=== PATIENT | male | born 1955 | race Caucasian/White ===

== ENCOUNTER 2019-04-09 21:59 | Emergency (ER) | payer OTHER ==
[2019-04-10 00:46] LABS: ADD MAN DIFF? NO
[2019-04-10] MEDS: METOCLOPRAMIDE 10 MG INJ IV (00:46)
[2019-04-10] MEDS: SOD CHLORIDE 0.9% 1,000 ML IV (00:46)
[2019-04-10] MEDS: FAMOTIDINE 20 MG INJ IV (00:46)
[2019-04-10 00:47] LABS: WHITE BLOOD COUNT 10.3 10^3/ul (4.8-10.8)
[2019-04-10 00:47] LABS: ABNORMAL IP MESSAGE 1; BASOPHIL # 0.1 10^3/ul (0.0-0.1); BASOPHILS % 1.4 % (0.0-2.0); EOSINOPHILS # 2.7 10^3/ul (0.0-0.5); EOSINOPHILS % 26.7 % (0.0-7.0); HEMATOCRIT 43.2 % (42.0-52.0); HEMOGLOBIN 14.2 g/dl (14.0-18.0); LYMPHOCYTES # 2.7 10^3/ul (0.8-2.9); LYMPHOCYTES % 25.9 % (15.0-51.0); MEAN CORPUSCULAR HEMOGLOBIN 27.7 pg (29.0-33.0); MEAN CORPUSCULAR HGB CONC 32.9 g/dl (32.0-37.0); MEAN CORPUSCULAR VOLUME 84.4 fl (82.0-101.0); MONOCYTE # 0.7 10^3/ul (0.3-0.9); MONOCYTES % 6.5 % (0.0-11.0); NEUTROPHILS % 39.2 % (39.0-77.0); PLATELET COUNT 260 10^3/UL (140-415); POSITIVE DIFF @See below; RED BLOOD COUNT 5.12 10^6/ul (4.70-6.10); RED CELL DISTRIBUTION WIDTH 13.3 % (11.5-14.5)
[2019-04-10 01:06] LABS: ANION GAP 11 (5-13); BLOOD UREA NITROGEN 18 mg/dl (7-20); CALCIUM 9.8 mg/dl (8.4-10.2); CARBON DIOXIDE 27 mmol/L (21-31); CHLORIDE 104 mmol/L (97-110); CREATININE 0.75 mg/dl (0.61-1.24); Estimated GFR > 60 mL/min (>60); GLUCOSE 168 mg/dl (70-220); POTASSIUM 4.8 mmol/L (3.5-5.1); SODIUM 142 mmol/L (135-144)
[2019-04-10 02:40] LABS: BASOPHIL #M 0.2 10^3/ul (0.0-0.0); BASOPHILS % (M) 2 % (0-2); EOSINOPHILS % (M) 23 % (0-7); LYMPHOCYTES % (M) 20 % (15-51); MONOCYTE #M 0.6 10^3/ul (0.3-0.9); MONOCYTES % (M) 6 % (0-11); PLATELET ESTIMATE NORMAL; SEGMENTED NEUTROPHILS (M) % 49 % (39-77); SMUDGE%M 3 % (0-0)
== END 2019-04-10 02:59 | disposition home or self-care (01) ==
LOC: FTE 04-10 02:59
DX: R06.6 Hiccough (principal); E11.9 Type 2 diabetes mellitus without complications; I10 Essential (primary) hypertension
CPT/HCPCS: 36415; 80048; 85025; 96374; 96375; 99284-25

== ENCOUNTER 2019-04-11 16:48 | Emergency (ER) | payer OTHER ==
[2019-04-11] MEDS: BACLOFEN 10 MG TAB PO (18:22)
[2019-04-11] MEDS: LORAZEPAM 1 MG TAB PO (18:22)
[2019-04-11] MEDS: CHLORPROMAZINE 10 MG TAB PO (18:34)
== END 2019-04-11 18:49 | disposition home or self-care (01) ==
LOC: FTE 16:48
DX: R06.6 Hiccough (principal); I10 Essential (primary) hypertension; F17.210 Nicotine dependence, cigarettes, uncomplicated; E11.9 Type 2 diabetes mellitus without complications
CPT/HCPCS: 71046; 99283-25